=== PATIENT | male | born 1965 | race African-American/Black ===

== ENCOUNTER 2019-01-31 17:08 | Emergency (ER) | payer OTHER ==
--- NOTE | 2019-01-31 17:33 | ER ---
Nurse's Notes [facility] Name: Chuck Grewal Age: 53 yrs Sex: Male : 1965 Arrival Date: 01/31/2019 Time: 17:12 Bed 27 Private MD: Diagnosis: Encounter for medication refill Presentation: 01/31 17:23 Presenting complaint: Patient states: I need refill for my pills. (hydrochlorothiazide, rv furosemide, losartan). denies any symptoms. Transition of care: patient was not received from another setting of care. Onset of symptoms was January 31, 2019 at 17:24. Risk Assessment: Do you want to hurt yourself or someone else? Patient reports no desire to harm self or others. Initial Sepsis Screen: Does the patient meet any 2 criteria? No. Patient's initial sepsis screen is negative. Does the patient have a suspected source of infection? No. Patient's initial sepsis screen is negative. Care prior to arrival: None. 17:23 Method Of Arrival: Ambulatory rv 17:23 Acuity: KEVON 5 rv Historical: - Allergies: 17:26 No Known Allergies; rv - Home Meds: 17:29 hydrochlorothiazide 25 mg oral tab 1 tab once daily [Active]; losartan 50 mg oral tab 1 rv tab once daily [Active]; furosemide 20 mg oral tab 1 tab as needed [Active]; - PMHx: 17:26 Hypertension; rv - PSHx: 17:26 None; rv - Immunization history:: Adult Immunizations up to date. - Social history:: Smoking status: Patient/guardian denies using tobacco, never smoked. - Ebola Screening: : No symptoms or risks identified at this time. - Family history:: not pertinent. - Hospitalizations: : No recent hospitalization is reported. Screenin:27 Abuse screen: Denies threats or abuse. Denies injuries from another. Nutritional rv screening: No deficits noted. Tuberculosis screening: No symptoms or risk factors identified. Fall Risk None identified. Assessment: 17:29 General: Appears in no apparent distress. comfortable, Behavior is calm, cooperative. rv Pain: Denies pain. Neuro: Level of Consciousness is awake, alert, obeys commands, Oriented to person, place, time, situation. Cardiovascular: Patient's skin is warm and dry. Respiratory: Airway is patent. GI: No signs and/or symptoms were reported involving the gastrointestinal system. : No signs and/or symptoms were reported regarding the genitourinary system. EENT: No signs and/or symptoms were reported regarding the EENT system. Derm: Skin is intact. Musculoskeletal: No signs and/or symptoms reported regarding the musculoskeletal system. Vital Signs: 17:24 BP 120 / 87; Pulse 100; Resp 16; Temp 98.2(O); Pulse Ox 98% on R/A; Weight 88.45 kg rv (R); Height 5 ft. 7 in. (170.18 cm) (R); Pain 0/10; 17:24 Body Mass Index 30.54 (88.45 kg, 170.18 cm) rv ED Course: 17:12 Patient arrived in ED. aa5 17:17 Stephane Lozano, RN is Primary Nurse. rv 17:24 Triage completed. rv 17:25 Nathanael High MD is Attending Physician. rn 17:30 Patient has correct armband on for positive identification. Bed in low position. Call rv light in reach. Side rails up X 1. Pulse ox on. NIBP on. 17:30 Arm band placed on right wrist. Patient placed in the treatment room, on a stretcher, rv on pulse oximetry, Patient notified of wait time. 17:30 No provider procedures requiring assistance completed. Patient did not have IV access rv during this emergency room visit. Administered Medications: No medications were administered Outcome: 17:30 Discharged to home ambulatory. rv 17:30 Condition: unchanged 17:33 Discharge ordered by MD. rn 17:35 Discharge instructions given to patient, Instructed on discharge instructions, follow rv up and referral plans. medication usage, Demonstrated understanding of instructions, follow-up care, medications, Prescriptions given X 3. 17:35 Patient left the ED. rv Signatures: Nathanael High MD MD rn Calderon, Audri, RN RN aa5 Stephane Lozano RN RN rv Corrections: (The following items were deleted from the chart) 17:29 17:26 Home Meds: hydrochlorothiazide Oral; rv rv 17:29 17:26 Home Meds: Furosemide Oral; rv rv 17:29 17:26 Home Meds: losartan oral oral; rv rv
--- NOTE | 2019-01-31 17:34 | EDPHYS ---
Physician Documentation [facility] Name: Chuck Grewal Age: 53 yrs Sex: Male : 1965 Arrival Date: 01/31/2019 Time: 17:12 Bed 27 Private MD: ED Physician Nathanael High HPI: 01/31 17:29 This 53 yrs old Black Male presents to ER via Ambulatory with complaints of medication rn refill. 17:29 Reports ran out of meds 3 days ago, otherwise asymptomatic[place] Does not rn want bloodwork or complain of anything acute. . The patient has not recently seen a physician. Historical: - Allergies: 17:26 No Known Allergies; rv - Home Meds: 17:29 hydrochlorothiazide 25 mg oral tab 1 tab once daily [Active]; losartan 50 mg oral tab 1 rv tab once daily [Active]; furosemide 20 mg oral tab 1 tab as needed [Active]; - PMHx: 17:26 Hypertension; rv - PSHx: 17:26 None; rv - Immunization history:: Adult Immunizations up to date. - Social history:: Smoking status: Patient/guardian denies using tobacco, never smoked. - Ebola Screening: : No symptoms or risks identified at this time. - Family history:: not pertinent. - Hospitalizations: : No recent hospitalization is reported. ROS: 17:29 Constitutional: Negative for fever, chills, and weight loss, Eyes: Negative for injury, rn pain, redness, and discharge, Neck: Negative for injury, pain, and swelling, Cardiovascular: Negative for chest pain, palpitations, and edema, Respiratory: Negative for shortness of breath, cough, wheezing, and pleuritic chest pain, Abdomen/GI: Negative for abdominal pain, nausea, vomiting, diarrhea, and constipation, MS/Extremity: Negative for injury and deformity, Skin: Negative for injury, rash, and discoloration, Neuro: Negative for headache, weakness, numbness, tingling, and seizure. Exam: 17:29 Constitutional: This is a well developed, well nourished patient who is awake, alert, rn and in no acute distress. Ambulatory to room without assistance or distress Head/Face: Normocephalic, atraumatic. Eyes: Pupils equal round and reactive to light, extra-ocular motions intact. Lids and lashes normal. Conjunctiva and sclera are non-icteric and not injected. Cornea within normal limits. Periorbital areas with no swelling, redness, or edema. ENT: MMM Cardiovascular: No pulse deficits. Respiratory: No increased work of breathing, no retractions or nasal flaring. Speaking full sentences Skin: Warm, dry MS/ Extremity: Pulses equal, no cyanosis. Equal circumference, no edema. Vital Signs: 17:24 BP 120 / 87; Pulse 100; Resp 16; Temp 98.2(O); Pulse Ox 98% on R/A; Weight 88.45 kg rv (R); Height 5 ft. 7 in. (170.18 cm) (R); Pain 0/10; 17:24 Body Mass Index 30.54 (88.45 kg, 170.18 cm) rv MDM: 17:25 Patient medically screened. rn 17:29 Differential Diagnosis medication refill. Data reviewed: vital signs, nurses notes, and rn as a result, I will discharge patient. Counseling: I had a detailed discussion with the patient and/or guardian regarding: the historical points, exam findings, and any diagnostic results supporting the discharge/admit diagnosis, the need for outpatient follow up, to return to the emergency department if symptoms worsen or persist or if there are any questions or concerns that arise at home. Special discussion: I discussed with the patient/guardian in detail that at this point there is no indication for admission to the hospital. It is understood, however, that if the symptoms persist or worsen the patient needs to return immediately for re-evaluation. Administered Medications: No medications were administered Disposition: 01/31/19 17:33 Discharged to Home. Impression: Encounter for medication refill. - Condition is Stable. - Prescriptions for losartan 50 mg Oral tablet - take 1 tablet by ORAL route once daily; 60 tablet. Hydrochlorothiazide 25 mg Oral Tablet - take 1 tablet by ORAL route once daily .; 60 tablet. Lasix 20 mg Oral Tablet - take 1 tablet by ORAL route once daily; 60 tablet. - Medication Reconciliation Form, Thank You Letter, Antibiotic Education, Prescription Opioid Use form. - Follow up: Private Physician; When: As needed; Reason: Recheck today's complaints, Re-evaluation by your physician. - Problem is new. - Symptoms have improved. Signatures: High, Nathanael, MD MD rn Blake, Stephane, RN RN rv Corrections: (The following items were deleted from the chart) 17:29 17:26 Home Meds: hydrochlorothiazide Oral; rv rv 17:29 17:26 Home Meds: Furosemide Oral; rv rv 17:29 17:26 Home Meds: losartan oral oral; rv rv 17:35 17:33 01/31/2019 17:33 Discharged to Home. Impression: Encounter for medication refill. rv Condition is Stable. Prescriptions for losartan 50 mg Oral tablet - take 1 tablet by ORAL route once daily; 60 tablet, Hydrochlorothiazide 25 mg Oral Tablet - take 1 tablet by ORAL route once daily .; 60 tablet, Lasix 20 mg Oral Tablet - take 1 tablet by ORAL route once daily; 60 tablet. and Forms are Medication Reconciliation Form, Thank You Letter, Antibiotic Education, Prescription Opioid Use. Follow up: Private Physician; When: As needed; Reason: Recheck today's complaints, Re-evaluation by your physician. Problem is new. Symptoms have improved. rn
== END 2019-01-31 17:35 | disposition home or self-care (01) ==
LOC: ER 17:08
DX: Z76.0 Encounter for issue of repeat prescription (principal); I10 Essential (primary) hypertension
CPT/HCPCS: 99283

== ENCOUNTER 2019-03-05 17:23 | Emergency (ER) | payer OTHER ==
--- NOTE | 2019-03-05 18:07 | ER ---
Nurse's Notes [facility] Name: Chuck Grewal Age: 53 yrs Sex: Male : 1965 Arrival Date: 03/05/2019 Time: 17:24 Bed 15 Private MD: Diagnosis: Chlamydial lymphogranuloma (venereum) Presentation: 03/05 17:27 Presenting complaint: Patient states: 3-4 days ago he noticed that he has some sores on rb1 the underside of the shaft of the penis. Pt. denies discharge. C/o of stinging where the sores are. Transition of care: patient was not received from another setting of care. Onset of symptoms was March 02, 2019. Risk Assessment: Do you want to hurt yourself or someone else? Patient reports no desire to harm self or others. Initial Sepsis Screen: Does the patient meet any 2 criteria? No. Patient's initial sepsis screen is negative. Does the patient have a suspected source of infection? No. Patient's initial sepsis screen is negative. Care prior to arrival: None. 17:27 Method Of Arrival: Ambulatory rb1 17:27 Acuity: KEVON 3 rb1 Triage Assessment: 17:27 General: Appears in no apparent distress. comfortable, Behavior is calm, cooperative, rb1 Denies fever, feeling ill. Pain: Denies pain. Neuro: Level of Consciousness is awake, alert, obeys commands, Oriented to person, place, time, situation. Cardiovascular: Capillary refill < 3 seconds is brisk in bilateral fingers. Respiratory: Airway is patent Respiratory effort is even, unlabored, Respiratory pattern is regular, symmetrical. GI: No signs and/or symptoms were reported involving the gastrointestinal system. : Reports sores on the shaft of his penis. c/o stinging. Denies discharge. Derm: Skin is dry, Skin is normal, Skin temperature is warm. Historical: - Allergies: 17:39 No Known Allergies; rb1 - Home Meds: 17:39 hydrochlorothiazide 25 mg Oral tab 1 tab once daily [Active]; losartan 50 mg Oral tab 1 rb1 tab once daily [Active]; - PMHx: 17:39 Hypertension; rb1 - PSHx: 17:27 None; rb1 - Immunization history:: Adult Immunizations up to date, Last tetanus immunization: up to date. - Social history:: Smoking status: Patient/guardian denies using tobacco. - Ebola Screening: : Patient negative for fever greater than or equal to 101.5 degrees Fahrenheit, and additional compatible Ebola Virus Disease symptoms. - Family history:: not pertinent. - Hospitalizations: : No recent hospitalization is reported. Screenin:27 Abuse screen: Denies threats or abuse. Nutritional screening: No deficits noted. rb1 Tuberculosis screening: No symptoms or risk factors identified. Fall Risk None identified. Assessment: 17:27 General: See triage assessment. rb1 18:10 Reassessment: Patient appears in no apparent distress at this time. No changes from rb1 previously documented assessment. Vital Signs: 17:27 BP 139 / 84; Pulse 100; Resp 18; Temp 97.9(O); Pulse Ox 100% on R/A; Weight 88.45 kg rb1 (R); Height 5 ft. 7 in. (170.18 cm) (R); Pain 0/10; 17:27 Body Mass Index 30.54 (88.45 kg, 170.18 cm) [facility] ED Course: 17:24 Patient arrived in ED. as 17:27 Arm band placed on right wrist. rb1 17:27 Patient has correct armband on for positive identification. Bed in low position. Call rb1 light in reach. Side rails up X 1. Pulse ox on. NIBP on. 17:34 Mary Maher MD is Attending Physician. ma2 17:36 Candelaria Hastings, RN is Primary Nurse. rb1 17:38 Triage completed. rb1 18:16 No provider procedures requiring assistance completed. Patient did not have IV access rb1 during this emergency room visit. Administered Medications: No medications were administered Outcome: 18:06 Discharge ordered by . ma2 18:16 Discharged to home ambulatory. rb1 18:16 Condition: stable 18:16 Discharge instructions given to patient, Instructed on discharge instructions, follow up and referral plans. medication usage, Demonstrated understanding of instructions, follow-up care, medications, Prescriptions given X 1. 18:17 Patient left the ED. rb1 Signatures: Jenn Borges as Candelaria Hastings, RN RN rb1 Mary Maher MD MD wyAron
--- NOTE | 2019-03-05 18:07 | EDPHYS ---
Physician Documentation [facility] Name: Chuck Grewal Age: 53 yrs Sex: Male : 1965 Arrival Date: 03/05/2019 Time: 17:24 Bed 15 Private MD: ED Physician Mary Maher HPI: 03/05 18:03 This 53 yrs old Black Male presents to ER via Ambulatory with complaints of Medical ma2 Complaint. 18:03 This 53 yrs old Black Male presents to ER via Ambulatory with complaints of genital ma2 ulcer. 18:03 Onset: The symptoms/episode began/occurred gradually, 3 day(s) ago. Associated signs ma2 and symptoms: Pertinent negatives: diarrhea, hematuria, nausea. Severity of symptoms: At their worst the symptoms were very mild, in the emergency department the symptoms are unchanged. The patient has not experienced similar symptoms in the past. Historical: - Allergies: 17:39 No Known Allergies; rb1 - Home Meds: 17:39 hydrochlorothiazide 25 mg Oral tab 1 tab once daily [Active]; losartan 50 mg Oral tab 1 rb1 tab once daily [Active]; - PMHx: 17:39 Hypertension; rb1 - PSHx: 17:27 None; rb1 - Immunization history:: Adult Immunizations up to date, Last tetanus immunization: up to date. - Social history:: Smoking status: Patient/guardian denies using tobacco. - Ebola Screening: : Patient negative for fever greater than or equal to 101.5 degrees Fahrenheit, and additional compatible Ebola Virus Disease symptoms. - Family history:: not pertinent. - Hospitalizations: : No recent hospitalization is reported. ROS: 18:03 Constitutional: Negative for fever, chills, and weight loss. ma2 18:03 All other systems are negative. Exam: 18:03 Constitutional: This is a well developed, well nourished patient who is awake, alert, ma2 and in no acute distress. Cardiovascular: Regular rate and rhythm with a normal S1 and S2. No gallops, murmurs, or rubs. Normal PMI, no JVD. No pulse deficits. Respiratory: Lungs have equal breath sounds bilaterally, clear to auscultation and percussion. No rales, rhonchi or wheezes noted. No increased work of breathing, no retractions or nasal flaring. Abdomen/GI: Soft, non-tender, with normal bowel sounds. No distension or tympany. No guarding or rebound. No evidence of tenderness throughout. Male : + 2 penile painless ulcers with clean base, with no discharge or lesions. Vital Signs: 17:27 BP 139 / 84; Pulse 100; Resp 18; Temp 97.9(O); Pulse Ox 100% on R/A; Weight 88.45 kg rb1 (R); Height 5 ft. 7 in. (170.18 cm) (R); Pain 0/10; 17:27 Body Mass Index 30.54 (88.45 kg, 170.18 cm) rb1 MDM: 17:34 Patient medically screened. ma2 18:03 Differential diagnosis: dd includes primary syphilis vs lymphogranuloma venereum. Data ma2 reviewed: vital signs, nurses notes. Counseling: I had a detailed discussion with the patient and/or guardian regarding: the historical points, exam findings, and any diagnostic results supporting the discharge/admit diagnosis, the presence of at least one elevated blood pressure reading (>120/80) during this emergency department visit, the need for outpatient follow up. Response to treatment: There is no appreciated change of the patient's symptoms at this time. Administered Medications: No medications were administered Disposition: 03/05/19 18:06 Discharged to Home. Impression: Chlamydial lymphogranuloma (venereum). - Condition is Stable. - Discharge Instructions: Chlamydia, Male, Sexually Transmitted Disease. - Prescriptions for Doxycycline Monohydrate 100 mg Oral Tablet - take 1 tablet by ORAL route every 12 hours for 21 days; 20 tablet. - Medication Reconciliation Form, Thank You Letter, Antibiotic Education, Prescription Opioid Use form. - Follow up: Private Physician; When: Tomorrow; Reason: If symptoms return, Continuance of care. - Notes: please have your partner treated and refrain from sexual interact for 2 weeks Signatures: Candelaria Hastings RN RN rb1 Mary Maher MD MD ma2 Corrections: (The following items were deleted from the chart) 18:17 18:06 03/05/2019 18:06 Discharged to Home. Impression: Chlamydial lymphogranuloma rb1 (venereum). Condition is Stable. Prescriptions for Doxycycline Monohydrate 100 mg Oral Tablet - take 1 tablet by ORAL route every 12 hours for 21 days; 20 tablet. and Forms are Medication Reconciliation Form, Thank You Letter, Antibiotic Education, Prescription Opioid Use. Follow up: Private Physician; When: Tomorrow; Reason: If symptoms return, Continuance of care. ma2
[2019-03-05 19:03] VITALS: BP 139/84; TEMP 97.9; O2SAT 100
== END 2019-03-05 18:17 | disposition home or self-care (01) ==
LOC: ER 17:23
DX: A55 Chlamydial lymphogranuloma (venereum) (principal); I10 Essential (primary) hypertension
CPT/HCPCS: 99283

== ENCOUNTER 2019-04-03 15:06 | Emergency (ER) | payer OTHER ==
--- NOTE | 2019-04-03 15:27 | EDPHYS ---
Physician Documentation [facility] Name: Chuck Grewal Age: 53 yrs Sex: Male : 1965 Arrival Date: 04/03/2019 Time: 15:07 Bed 11 Private MD: ED Physician Matthew Bustamante HPI: 04/03 15:19 This 53 yrs old Black Male presents to ER via Ambulatory with complaints of Medication cp Refill. 15:19 The patient presents to the emergency department requesting refill(s) for: Losartan and cp Hydrochlorothiazide . The patient chronically suffers from hypertension. Patient reports he ran out of medications yesterday. No other complaints expressed. Historical: - Allergies: 15:15 No Known Allergies; hb - Home Meds: 15:15 furosemide 20 mg Oral tab 1 tab as needed [Active]; hydrochlorothiazide 25 mg Oral tab hb 1 tab once daily [Active]; losartan 50 mg Oral tab 1 tab once daily [Active]; - PMHx: 15:15 Hypertension; hb - PSHx: 15:15 None; hb - Immunization history:: Adult Immunizations up to date. - Social history:: Smoking status: Patient/guardian denies using tobacco. - Ebola Screening: : No symptoms or risks identified at this time. ROS: 15:20 All other systems are negative. cp Exam: 15:22 Constitutional: The patient appears in no acute distress, alert, awake, cp non-diaphoretic, non-toxic, well developed, well nourished. 15:22 Head/Face: Normocephalic, atraumatic. cp 15:22 Eyes: Periorbital structures: appear normal, Conjunctiva: normal, no exudate, no injection, Lids and lashes: appear normal, bilaterally. 15:22 ENT: External ear(s): are unremarkable, TM's: are normal, no evidence of bulging, no erythema, Nose: is normal, Mouth: is normal, Posterior pharynx: is normal, airway is patent, no erythema, no exudate. 15:22 Neck: External neck: is normal. 15:22 Chest/axilla: Inspection: normal, Palpation: is normal, no crepitus, no tenderness. 15:22 Cardiovascular: Rate: normal, Rhythm: regular, Edema: is not appreciated, JVD: is not appreciated. 15:22 Respiratory: the patient does not display signs of respiratory distress, Respirations: normal, no use of accessory muscles, no retractions, no splinting, no tachypnea, labored breathing, is not present, Breath sounds: are clear throughout, no decreased breath sounds, no stridor, no wheezing. 15:22 Abdomen/GI: Exam negative for discomfort, distension, guarding, Inspection: abdomen appears normal. 15:22 Back: pain, is absent, ROM is normal. 15:22 Skin: no rash present. 15:22 Neuro: Orientation: to person, place \T\ time. Mentation: is normal, Cerebellar function: is grossly normal, Motor: moves all fours, strength is normal, Sensation: is normal. Vital Signs: 15:14 BP 118 / 72; Pulse 92; Resp 16; Temp 97.8; Pulse Ox 100% on R/A; Weight 81.65 kg; hb Height 5 ft. 7 in. (170.18 cm); Pain 0/10; 15:14 Body Mass Index 28.19 (81.65 kg, 170.18 cm) hb MDM: 15:17 Patient medically screened. cp Administered Medications: No medications were administered Disposition: 04/03/19 15:25 Discharged to Home. Impression: Medication refill. - Condition is Stable. - Discharge Instructions: Hypertension, Managing Your Hypertension. - Prescriptions for losartan 50 mg Oral tablet - take 1 tablet by ORAL route once daily; 30 tablet. Hydrochlorothiazide 50 mg Oral Tablet - take 0.5 tablet by ORAL route once daily; 30 tablet. - Medication Reconciliation Form, Thank You Letter, Antibiotic Education, Prescription Opioid Use form. - Follow up: Private Physician; When: As needed; Reason: future medication refills. - Problem is new. - Symptoms have improved. Signatures: Kimberly Vick RN RN ss Femi Jeong PA PA cp Michelle Lazar RN RN Corrections: (The following items were deleted from the chart) 15:37 15:25 04/03/2019 15:25 Discharged to Home. Impression: Medication refill. Condition is ss Stable. Forms are Medication Reconciliation Form, Thank You Letter, Antibiotic Education, Prescription Opioid Use. Follow up: Private Physician; When: As needed; Reason: future medication refills. Problem is new. Symptoms have improved. cp
--- NOTE | 2019-04-03 15:27 | ER ---
Nurse's Notes [facility] Name: Chuck Grewal Age: 53 yrs Sex: Male : 1965 Arrival Date: 04/03/2019 Time: 15:07 Bed 11 Private MD: Diagnosis: Medication refill Presentation: 04/03 15:11 Presenting complaint: Needs refill of Losartan 50 mg daily and HCTZ 25 mg daily. hb Transition of care: patient was not received from another setting of care. Onset of symptoms was April 03, 2019. Risk Assessment: Do you want to hurt yourself or someone else? Patient reports no desire to harm self or others. Initial Sepsis Screen: Does the patient meet any 2 criteria? No. Patient's initial sepsis screen is negative. Does the patient have a suspected source of infection? No. Patient's initial sepsis screen is negative. Care prior to arrival: None. 15:11 Method Of Arrival: Ambulatory hb 15:11 Acuity: KEVON 5 hb Historical: - Allergies: 15:15 No Known Allergies; hb - Home Meds: 15:15 furosemide 20 mg Oral tab 1 tab as needed [Active]; hydrochlorothiazide 25 mg Oral tab hb 1 tab once daily [Active]; losartan 50 mg Oral tab 1 tab once daily [Active]; - PMHx: 15:15 Hypertension; hb - PSHx: 15:15 None; hb - Immunization history:: Adult Immunizations up to date. - Social history:: Smoking status: Patient/guardian denies using tobacco. - Ebola Screening: : No symptoms or risks identified at this time. Screenin:35 Abuse screen: Denies threats or abuse. Denies injuries from another. Nutritional ss screening: No deficits noted. Tuberculosis screening: Never had TB. Fall Risk None identified. Assessment: 15:35 General: Appears in no apparent distress. comfortable, Behavior is calm, cooperative. ss Pain: Denies pain. Neuro: Level of Consciousness is awake, alert, obeys commands. Cardiovascular: Capillary refill < 3 seconds is brisk in bilateral fingers. Respiratory: Airway is patent Respiratory effort is even, unlabored, Respiratory pattern is regular, symmetrical. Derm: Skin is intact, is healthy with good turgor, Skin is dry, Skin is pink, warm \T\ dry. normal. Musculoskeletal: Circulation, motion, and sensation intact. Range of motion: intact in all extremities, Swelling. Vital Signs: 15:14 BP 118 / 72; Pulse 92; Resp 16; Temp 97.8; Pulse Ox 100% on R/A; Weight 81.65 kg; hb Height 5 ft. 7 in. (170.18 cm); Pain 0/10; 15:14 Body Mass Index 28.19 (81.65 kg, 170.18 cm) hb ED Course: 15:07 Patient arrived in ED. as 15:11 Triage completed. hb 15:14 Arm band placed on. 15:15 Femi Jeong PA is PHCP. cp 15:15 Mtathew Bustamante MD is Attending Physician. cp 15:35 Patient has correct armband on for positive identification. Bed in low position. Call ss light in reach. 15:35 No provider procedures requiring assistance completed. Patient did not have IV access ss during this emergency room visit. Administered Medications: No medications were administered Outcome: 15:25 Discharge ordered by MD. cp 15:35 Discharged to home ambulatory. ss 15:35 Condition: good 15:35 Discharge instructions given to patient, Instructed on discharge instructions, follow up and referral plans. medication usage, Demonstrated understanding of instructions, follow-up care, medications, Prescriptions given X 2. 15:37 Patient left the ED. ss Signatures: Jenn Borges Shelby, RN RN Femi Jeong PA PA cp Baxter, Heather, RN RN
[2019-04-03 16:15] VITALS: BP 118/72; TEMP 97.8; O2SAT 100
== END 2019-04-03 15:37 | disposition home or self-care (01) ==
LOC: ER 15:06
DX: Z76.0 Encounter for issue of repeat prescription (principal); I10 Essential (primary) hypertension
CPT/HCPCS: 99282